=== PATIENT | male | born 1970 | race Caucasian/White ===

== ENCOUNTER → 2018-01-31 | Outpatient (CLI) | payer OTHER ==
[~2018-01-31] VITALS: Ht 177.8 cm; Wt 94.9 kg
[~2018-01-31] MED LIST: ASPIRIN 81M81 MG/TA2 PO; COZAAR 25MG25 MG/TAB PO; TOPROL XL 25MG25 MG; ZOCOR 40MG40 MG PO; [UNRECOGNIZED DRUG - OTHER]
[2018-01-31 05:36] VITALS: BP 135/78; PULSE 68
== END ==
LOC: COL.CARD 05:12
DX: I10 Essential (primary) hypertension (principal); M75.81 Other shoulder lesions, right shoulder
CPT/HCPCS: A9502

== ENCOUNTER 2019-07-07 15:22 | Emergency (ER) | payer OTHER ==
[~2019-07-07] VITALS: Ht 177.8 cm; Wt 97.7 kg
[2019-07-07 15:25] VITALS: BP 130/77; TEMP 98.4
[2019-07-07 16:53] VITALS: PULSE 85
== END 2019-07-07 16:53 | disposition home or self-care (01) ==
LOC: COL.ER 15:22
DX: S09.90XA Unspecified injury of head, initial encounter (principal); S01.01XA Laceration without foreign body of scalp, initial encounter; Z79.82 Long term (current) use of aspirin; W22.8XXA Striking against or struck by other objects, initial encounter; Y92.009 Unspecified place in unspecified non-institutional (private) residence as the place of occurrence of the external cause